=== PATIENT | male | born 1975 | race Caucasian/White ===

== ENCOUNTER 2019-04-19 14:45 | Emergency (ER) | payer OTHER ==
[~2019-04-19] VITALS: Ht 172.7 cm; Wt 104.3 kg
[~2019-04-19 14:45] MED LIST: DEXAMETHASONE 44 M1 PO; TRIAMCINOLONE A80 G2 TOP
[2019-04-19 14:52] VITALS: BP 152/96
[2019-04-19] MEDS ORDERED: CIPROFLOXIN HC2.5 M1 OPHTHALMIC (15:30)
== END 2019-04-19 15:25 | disposition home or self-care (01) ==
LOC: M.ERS 14:45
DX: S05.02XA Injury of conjunctiva and corneal abrasion without foreign body, left eye, initial encounter (principal); X58.XXXA Exposure to other specified factors, initial encounter; Y93.89 Activity, other specified; Y92.89 Other specified places as the place of occurrence of the external cause; Y99.8 Other external cause status

== ENCOUNTER 2021-04-09 11:03 | Emergency (ER) | payer OTHER ==
[~2021-04-09] VITALS: Ht 172.7 cm; Wt 99.8 kg
[~2021-04-09 11:03] MED LIST changes: +CIPROFLOXIN HC2.5 M1 OPHTHALMIC
[2021-04-09 11:44] LABS: ABSOLUTE EOSINOPHILS 0.1 thou/uL (0.0-0.7); ABSOLUTE LYMPHOCYTES 2.9 thou/uL (0.8-5.3); ABSOLUTE MONOCYTES 0.5 thou/uL (0.0-1.2); ABSOLUTE NEUTROPHILS 4.9 thou/uL (1.6-8.1); BASOPHILS 0.5 %; EOSINOPHILS 1.6 %; HEMATOCRIT 46.7 % (42.0-52.0); HEMOGLOBIN 15.7 gm/dL (14.0-18.0); LYMPHOCYTES 33.9 %; MCH 26.8 pg (26.0-34.0); MCHC 33.6 g/dL (28.0-37.0); MCV 79.7 fL (80.0-100.0); MONOCYTES 6.2 %; MPV 8.6 fl. (7.2-11.1); NUCLEATED RBCS 0 /100WBC; PLATELET COUNT* 221 thou/uL (150-400); POLYS 57.8 %; RBC 5.86 mil/uL (4.50-6.00); RDW-CV 13.6 % (10.5-14.5); WBC 8.6 thou/uL (4.0-11.0)
[2021-04-09 11:59] LABS: CALCIUM 8.9 mg/dL (8.5-10.1); CREATININE 1.1 mg/dL (0.6-1.3); POTASSIUM 3.4 mmol/L (3.5-5.1)
[2021-04-09 12:04] LABS: ALBUMIN 4.3 g/dL (3.4-5.0); TOTAL BILIRUBIN 0.6 mg/dL (<0.1-1.0); TOTAL PROTEIN 7.6 g/dL (6.4-8.2)
[2021-04-09] MEDS ORDERED: TRANSDERM-SCOP1 EACH TRANSDERM (14:12)
[2021-04-09] MEDS ORDERED: PHENERGAN 25 MG25 M1 PO (14:12)
[2021-04-09 14:31] VITALS: BP 125/75
[2021-04-09] MEDS ORDERED: AUGMENTIN 875-1 EACH PO (14:39)
--- NOTE | 2021-04-10 14:14 | EKG ---
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
== END 2021-04-09 14:31 | disposition home or self-care (01) ==
LOC: M.ERS 11:03
PROVIDERS: Nurse Practitioner Family
DX: H83.09 Labyrinthitis, unspecified ear (principal); R42 Dizziness and giddiness; Z88.8 Allergy status to other drugs, medicaments and biological substances